=== PATIENT | male | born 1995 | race Caucasian/White ===

== ENCOUNTER 2017-07-04 16:19 | Emergency (ER) | payer SELFPAY ==
--- NOTE | 2017-07-04 16:29 | EDPHY ---
HPI/HX/ROS/PE/MDM Narrative: CHIEF COMPLAINT: Testicular pain HPI: This is a 21-year-old male with a history of [place]'s disease who complains of intermittent bilateral testicular pain over the last several months. Today he developed severe left-sided testicle pain. He denies any discharge from penis, dysuria or trauma to the testicles. No history of fever. No history of known urologic disease. He denies flank or abdominal pain. REVIEW OF SYSTEMS: Aside from elements discussed in the HPI, a comprehensive 10-point review of systems was reviewed and is negative. PMH: [place]'s disease. Denies other medical history. SOCIAL HISTORY: Single. Sexually active. PHYSICAL EXAM: General:Patient is alert, in no acute distress. Abdomen:The abdomen is nontender to palpation. There are no peritoneal signs. There are normal bowel sounds. Back: Normal to inspection. No tenderness to palpation. Skin: Normal color. No rash. Warm and dry. Extremities: Normal appearance. Full range of motion. Neuro: Oriented x3. Normal motor function. Normal sensory function. ED Course: 21 year old male presents with severe left-sided testicle pain. Plan for testicular ultrasound. Plan for GC/Chlamydia test. 17:[address] Horvath, radiologist. US shows epididymitis. Administered 250mg IV Rocephin and 100mg PO Doxycycline. Plan to d/c home in good condition with prescription for Vibramycin. Referral to urology given. Follow up and return precautions discussed. The patient is comfortable with this plan. MDM: This patient presents with signs and symptoms of epididymitis, confirmed on US. UA is negative. I see no signs of torsion, abscess, CA or kidney stone. - Data Points Imaging Results: Imaging Impressions Testicular Ultrasound 07/04/17 16:40 Impression: Left epididymitis. Results called and discussed with Axel Booker MD, at 07/04/2017 17:34 Imaging: Discussed imaging studies w/ bilingual call center representative Radiologist Laboratory Results: 07/04/17 07/04/17 17:20 17:20 Urine Color PALE YELLOW Urine Appearance CLEAR Urine pH 7.0 (5.0-7.5) Ur Specific Datto 1.008 (1.002-1.030) Urine Protein NEGATIVE (NEGATIVE) Urine Ketones NEGATIVE (NEGATIVE) Urine Blood NEGATIVE (NEGATIVE) Urine Nitrate NEGATIVE (NEGATIVE) Urine Bilirubin NEGATIVE (NEGATIVE) Urine Urobilinogen NEGATIVE EU EU (0.2-1.0) Ur Leukocyte Esterase NEGATIVE (NEGATIVE) Urine Glucose NEGATIVE (NEGATIVE) C.trachomatis RNA (TMA) Pending N.gonorrhoeae RNA (TMA) Pending General Time Seen by Provider: 07/04/17 16:27 Initial Vital Signs: Initial Vital Signs Temperature (C) 36.7 C 07/04/17 16:22 Heart Rate 71 07/04/17 16:22 Respiratory Rate 16 07/04/17 16:22 Blood Pressure 144/84 H 07/04/17 16:22 O2 Sat (%) 98 07/04/17 16:22 O2 Delivery Mode Room Air Allergies/Adverse Reactions: No Known Allergies Allergy (Unverified 07/04/17 16:21) Home Medications: Medication Instructions Recorded Doxycycline Hyclate [Vibramycin] 100 mg PO BID #20 cap 07/04/17 Fluticasone-Salmeterol 113-14 07/04/17 Hydrocortisone 07/04/17 Departure - Departure Disposition: Home, Routine, Self-Care Clinical Impression: Acute epididymitis Condition: Good Instructions: Epididymitis (ED) Additional Instructions: 1. Take Vibramycin as prescribed. 2. Follow up with urology next week. 3. Return to the emergency department if you develop fever, worsening pain, difficulty urinating, or other worsening of condition. Referrals: Geovanna Montaño MD [Medical Doctor] - As per Instructions Prescriptions: Doxycycline Hyclate [Vibramycin] 100 mg PO BID #20 cap Report Scribed for: Axel Booker Report Scribed by: Bernie Quezada Date of Report: 07/04/17 Time of Report: 18:37 Physician Review and Approval Statement: Portions of this note were transcribed by an ED scribe. I personally performed the history, physical exam, and medical decision making; and confirm the accuracy of the information in the transcribed note.
[2017-07-04] MEDS ORDERED: DOXYCYCLINE HYCLATE 100 MG CAP/TAB PO ONE (17:50)
[2017-07-04 18:49] VITALS: BP 118/69; PULSE 69; RESP 18; TEMP 98.4; O2SAT 99
[2017-07-06 12:44] LABS: GC AMPLIFICATION GENPROBE NEGATIVE (NEGATIVE)
== END 2017-07-04 18:49 | disposition home or self-care (01) ==
DX: N45.1 Epididymitis (principal)
CPT/HCPCS: J0696